=== PATIENT | male | born 1980 | race Caucasian/White ===

== ENCOUNTER → 2020-09-22 09:18 | Outpatient (CLI) | payer BC, SELFPAY ==
[2020-09-23 16:04] LABS: COVID19 Sendout Not Detected (Not Detect)
== END ==
PROVIDERS: Visit Provider Physician Assistant
DX: Z11.59 Encounter for screening for other viral diseases (principal)
CPT/HCPCS: 87635

== ENCOUNTER 2020-09-25 06:07 | Inpatient (IN) | payer BC, SELFPAY ==
[2020-09-19 09:50] VITALS: BMI 35.9
[2020-09-25] VITALS (17 sets, daily range): BP systolic 104–143; BP diastolic 52–85; PULSE 63–117; RESP 12–24; TEMP 36.2–37.3; O2SAT 47–97; BMI 35.9
--- NOTE | 2020-09-25 | DI.RAD.S_ITS ---
PROCEDURE: XR LUMBAR SPINE 2-3V INDICATIONS: L4-5 TLIF TECHNIQUE: 2 views of the lumbar spine were acquired. COMPARISON: [facility] [place], MR, MR LUMBAR SPINE WITHOUT CONTRAST, 05/07/2020, 8:53. [facility] [place] Perkins, CR, XR LUMBAR SPINE WITH OLBIQUES PLUS FLEXION EXTENSION, 04/11/2020, 10:23. FINDINGS: 2 intraoperative fluoroscopy images demonstrate discectomy and posterior fusion at L4-L5. IMPRESSION: Discectomy and posterior fusion at L4-L5. Dictated by: Roscoe Erwin M.D. on 09/25/2020 at 11:31 Approved by: Roscoe Erwin M.D. on 09/25/2020 at 11:34
[2020-09-25] MEDS: LACTATED RINGERS 1,000 ML 42 ML IV (07:00)
--- NOTE | 2020-09-25 07:52 | PM.PREOP ---
Pre-operative Note COVID-19 COVID-19 status: Negative Result date/Date tested (Pos, Neg/Pending): 09/23/20 Interval Note History & Physical reviewed/Exam performed by Physician: Yes Changes to H&P: No
[2020-09-25] MEDS: CEFAZOLIN 2 GM/100 ML FROZ.PIGGY IV ×3 (07:59→23:29)
--- NOTE | 2020-09-25 08:32 | SUR.OPER ---
Prone on spine table, head in foam head support, padded chest and pelvic supports, gel pad at knees, lower legs supported by pillows; nipples, genitalia and toes free of pressure, arms secured on foam padded arm boards at <90 degrees abduction. Tape over blanket at thigh secured to table.
[2020-09-25] MEDS: BUPIVACAINE 0.25% W/ EPI 30 ML VIAL INJ (08:36)
[2020-09-25] MEDS: BUPIVACAINE LIPOSOME 266 MG/20 ML VIAL INJ (08:37)
--- NOTE | 2020-09-25 10:28 | PM.OP.1 ---
Operative Date/Time/Diagnoses Date of procedure: 09/25/20 Time of procedure: 08:28 Pre-op diagnosis: 1. L4-5 recurrent disc herniation 2. L4-5 history of hemilaminectomy with spinal stenosis Post-op diagnosis: same Procedure & Clinicians Procedure: 1. L4-5 Postero-lateral and posterior interbody fusion 2. L4-5 interbody cage placement. 3. L4-5 decompressive laminectomy with bilateral facetecomies 4. L4-5 Posterior non-segmental instrumentation 5. [place] of bone marrow from iliac crest 6. Utilization of microsurgical technique and operating microscope Same procedure as scheduled: Yes Indications: Patient has been having chronic back pain and worsening lumbar radiculopathy. Patient had a prior microdiskectomy surgery. Patient's disc fragment was found to be partially calcified and was partially removed due to the significant calcification and adhesion. Patient failed multiple conservative management with worsening pain weakness and numbness in her lower extremity. Patient has been having difficulty performing activity of daily living. After discussing risks benefits of treatment options, patient elected proceed with surgery. Surgeon: Celso Tamayo [employer] Instructor: Jenelle Clark Click Yes if Unassisted: No Anesthesia Type: General Operative Notes Closure Type: primary Specimen(s): none sent Prosthetic devices, grafts, tissues, transplants, or devices: Globus revolve screws, Rise cage Estimated Blood Loss (mL): 50 Blood products transfused: none Procedure in detail: Patient was seen in the preoperative area. Risks and benefits of the surgery was discussed with the patient. Informed consent was obtained from the patient and placed in the chart. Surgical site was marked. Patient was taken to the operative room. General anesthesia was administered. Prophylactic antibiotic was given to the patient less than 30 min before the incision was made. Patient was placed into a prone position on the [place] table. Patient's back was then prepped and draped in the sterile fashion. Time-out was performed at this time. Using AP and lateral C-arm imaging the interval between L4-5 was identified and marked on patient's back. A 2 inch incision 2 in from midline was made on the right side first. The fascia was incised in line with skin incision. Globus MARS retractors was placed inside the incision and docked onto the L4 lamina. Using microsurgical technique and operating microscope, a L4 laminectomy and L4-5 facetectomy was performed using a Kerrison rongeur. The disc space at L4-5 was identified. And a total diskectomy was performed at L4-5 level. The calcified disc was identified again. There was significant adhesion that was pre-existing as well as from the prior surgery. Decompression was performed by removing the calcified disc as well as the remaining disc inside the interbody space. Total facetectomy was performed decompressing neural foramen along with laminectomy to decompress the central canal. The L4-5 level was rendered grossly unstable after the decompression was completed. Fusion was performed to address the instability created from the decompression. The endplates were decorticated using a rasp and shaver. The total diskectomy and decortication was performed at L4-5 level in order to to accomplish a L4-5 fusion. The local bone from the laminectomy and facetectomy was saved for local bone grafting. After the total diskectomy and decortication was completed, Trifecta bone graft material was combined with local bone that was harvested earlier. At this time, a separate skin is incision was made over the iliac crest. A Jamshidi needle was inserted into the iliac crest through a separate skin incision. 5 cc of bone marrow aspiration was obtained through the separate skin incision using a Jamshidi needle from the iliac crest. The bone marrow aspiration was combined with local bone and the Trifecta bone grafting material. The bone grafting material was placed into the L4-5 interbody space along with a expandable cage. The cage was expanded to its maximum height using the torque limiting screwdriver. At this time a mirror image incision was made on the left side. The fascia was incised in line with the skin incision. Globus MARS retractor was inserted and docked onto the L4-5 posterolateral gutter. Using the power drill, posterior-lateral decortication was performed at L4-5 level until bleeding cortical bone was identified. The remaining bone grafting material was placed into the L4-5 posterior lateral gutter he order to accomplish posterolateral fusion at the L4-5 level. Using the double C-arm technique, pedicle screws were placed into the L4-5 pedicles bilaterally. This was done by placing the Jamshidi needle into the pedicles, then placing the guidewires over the Jamshidi needle, and finally placing the cannulated screws over the guidewires bilaterally. After the pedicle screws were placed, 2 titanium rods was locked into the heads of the pedicle screws using locking caps and torque limiting screwdriver. After all the hardware was placed, and confirmed with AP and lateral C-arm imaging, the wound was then irrigated with sterile normal saline and packed with Ray-Mackenzie gauze for 3 min to accomplish hemostasis. After the gauze was removed the deep fascia was closed with #1 Vicryl suture. The subcutaneous layer was closed with 2-0 Vicryl. The skin was closed with skin faby. Patient tolerated the procedure well. There were no complications. Complications: none Post-operative Condition: stable Disposition: PACU Plan for aftercare: Admit to inpatient hospital
[2020-09-25] MEDS: fentaNYL 100 MCG/2 ML INJ IV (11:08)
[2020-09-25] MEDS: OXYCODONE IR 5 MG TABLET PO ×2 (11:14→11:45)
[2020-09-25] MEDS: ACETAMINOPHEN 325 MG TABLET 975 MG PO (11:15)
--- NOTE | 2020-09-25 11:20 | SUR.PHASEI ---
Pt received to PACU after general anesthesia at 1043. Oral airway in place. Chin lift performed. O2 sats on arrival = 47%. Placed on 100% NRB with improvement in O2 sats. Report received from LUCY Keller and Dr Colon. Oral airway out at 1053. O2 removed. Pt awake and alert, maintaining own airway. O2 sats 97% on room air.
[2020-09-25] MEDS: hydrOXYzine 50 MG/ML INJ 25 MG IM (11:43)
--- NOTE | 2020-09-25 12:09 | SUR.PHASEI ---
Transferred to 210. All belongings with pt. Received in room by LUCY Hardy. bedside handoff completed.
[2020-09-25] MEDS: SODIUM CHLORIDE 0.9% 1,000 ML 100 ML IV ×2 (12:30→22:52)
[2020-09-25] MEDS: HYDROMORPHONE 0.5 MG INJ IV ×4 (13:29→23:30)
--- NOTE | 2020-09-25 14:25 | PC.NURSE ---
Assess- Patient is comfortable in bed after getting 0.5mg of iv dilaudid. He is up and working with physical therapy. Patient has his own pj pants on. His Hong is at patients bedside. Dressing to lower back is cdi and patient denies numbness or tingling to lower extremities.
--- NOTE | 2020-09-25 14:52 | PT.IIE ---
Current Diagnoses Spinal stenosis, lumbar region without neurogenic claudication (09/25/20) Other intervertebral disc displacement, lumbar region (09/25/20) Other specified postprocedural states (09/25/20) Surgery Performed Operation Date: 09/25/20 07:45 Actual Procedures p L4-5 TLIF with instrumentation - Celso Tamayo MD Surgical History (Last Updated 09/19/20 @ 09:53 by Latia Caceres RN) Hx of eye surgery (Acute) Hx of microdiscectomy (Acute 06/25/20) Medical History (Last Updated 09/19/20 @ 10:06 by Latia Caceres RN) Anxiety (Acute) PTSD (post-traumatic stress disorder) (Acute) Recurrent herniation of lumbar disc (Acute) Sciatica (Acute) Spinal stenosis of lumbar region with radiculopathy (Acute) Physical Therapy Inpatient Evaluation/Re-Eval M1 PT/OT-IP Prior Functional Status Start: 09/25/20 13:40 Freq: NEEDED Status: Active Protocol: Document 09/25/20 14:26 (Rec: 09/25/20 14:52 [id number]) Medical Review Prior Functional Status Medical History Reviewed Yes Diet/Fluid Consistency Regular Communication no deficits noted. Able to make needs known Mobility and Gait independent for mobility without AD. Pt has difficulty bending over d/t back pain. Pt has been using log roll to L for bed mobility. He also places a walker on his L side of the bed to assist pushing off from sidelying position. Activities of Daily Living and IADL's independent for all ADLs and IADLs Prior Functional Level (Other details) Prior back pain located in the right buttock, posterior lateral thigh, and leg, to the first 3 toes and medial aspect of the foot. Social History Household Members spouse Living Arrangements House Number of Floors (Floors) One Floor Number of Stairs To Enter/Railing? 1 MARY with railing on L side pt has an adjustable bed Home Environment Standard Height Toilet,Walk in Shower,Tub/Shower Home Equipment Front Wheel Walker,Straight Cane,Grab Bars In Shower Additional Social History Comment Pt lives with his spouse in [place]. Spouse is a RN who works 2 days with 5 days off. He will primarily be the pt CG and pt's sister will also come in to assist if needed. M2 PT-IP Current Condition Start: 09/25/20 13:40 Freq: NEEDED Status: Active Protocol: Document 09/25/20 14:26 (Rec: 09/25/20 14:52 [id number]) Physical Therapy Current Condition Current Condition Evaluation Date 09/25/20 Treatment Diagnosis L4-5 TLIF, difficulty in walking Onset Date 09/25/20 Precautions Lumbar Precautions Log Roll,No Twisting,Limit Bending,Lifting Restriction of 10 lbs,Gait Belt above Incisional Area Weight Bearing Status Weight Bearing Status Full Weight Bearing M3 PT-IP Subjective Start: 09/25/20 13:40 Freq: NEEDED Status: Active Protocol: Document 09/25/20 14:26 (Rec: 09/25/20 14:52 [id number]) Subjective Physical Therapy Visit Type Type Initial Evaluation Visit Start Time 13:50 Visit Stop Time 14:20 Total Visit Minutes 30 Notes Spouse attended session. Number of RESIDENTIAL CONSTRUCTION INSTRUCTOR Visits 0 Physical Therapy Visit Comments Patient Comments I want to get out of the bed. Patient Goals to regain his mobility and strength. Therapy Pain Assessment Pain When Pain Assessed During Mobility Pain Present Pain Present Pain Reported Location back Intensity 5 Scale Used Numeric (0 - 10) Description Aching,With Movement Pain Management Techniques Timing of Activity with Medications M4 PT-IP Mobility and Gait Start: 09/25/20 13:40 Freq: NEEDED Status: Active Protocol: Document 09/25/20 14:26 (Rec: 09/25/20 14:52 [id number]) PT-Bed Mobility Assessment Rolling Type of Rolling Log Rolling,Roll to Left Level of Assist Contact Guard Assistance Supine to Sit Supine to Sit Contact Guard Assistance, Bedrails Scooting Scooting to Edge of Bed Contact Guard Assistance PT-Transfer Assessment Sit to and From Stand Sit to and from Stand Contact Guard Assistance,1 Person Assistance Equipment Transfer Assistive Device Gait Belt,Front Wheeled Walker Orthotic/Prosthetic Devices or Brace: No Transfers Transfer Destination Bed,Chair Transfer Technique Stand Step Pivot Transfer Ability Level of Assist Contact Guard Assistance,Use of Upper Extremities Comments Mobility Comments Pt was in bed upon PT arrival. Spouse at bedside. Pt began to be groggy but able to provide detailed PMH and social hx. BP in supine 132/77 . Pt initially completed log roll to L followed by pushing off through bedrail slowly d/t pain and softness of pt's bed . He sat up after and scooted towards EOB. Pt then requested to put on his underwear and pants and spouse assisted to mal. Pt then stood up with CGA and able to pull his pants up. He amb to toilet with FWW CGA and able to void in standing. Pt was somewhat wobbly possibly d/t the medication. He then turned around and amb back to bedside chair. He completed stand step pivot transferred and showed good descend with use of armrests. BP at 120/74. Pt denies discomfort but feeling groggy. Call light placed within reach. Gait Assessment Gait Gait Assistance Required: Contact Guard Assist Distance (Feet) 8 Able to Maintain Weight Bearing Status Yes During Gait Assistive Devices Assistive Device Gait Belt,Front Wheeled Walker Orthotic/Prosthetic Devices or Brace: No Gait Deviations General Gait Pattern Antalgic,Decreased Stride Length,Decreased Feet Clearance Factors Limiting Gait Function Factors Limiting Gait Function Decreased Activity Tolerance, Decreased Strength,Limited Range of Motion,Pain,Poor Balance,Poor Safety Awareness Comments Gait Comments see mobility comments. Stair Climbing Assessment Comments Stair Climbing Comments did not assess PT-Balance Assessment Sitting Balance and Reactions Static Sitting Balance Ability Normal Dynamic Sitting Balance Ability Normal Standing Balance and Reactions Static Standing Balance Ability Normal Dynamic Standing Balance Ability Good Device Used FWW M5 PT-IP Objective Assessments Start: 09/25/20 13:40 Freq: NEEDED Status: Active Protocol: Document 09/25/20 14:26 (Rec: 09/25/20 14:52 [id number]) Orientation Orientation/Cognition Level of Alertness Alert Orientation Name,Age,Birthday,Month,Date, Year,Day of Week,Place, Situation Language Function Ability No Deficits Noted Safety Awareness Understands Safety Issues Memory Description No Deficits Noted Gross Range of Motion Upper Extremity ROM Assessment Within Functional Limits Lower Extremity ROM Assessment Within Functional Limits Strength Upper Extremity Strength Assessment Within Functional Limits Lower Extremity Strength Assessment Right Impaired Ankle 4-/5 Comments Strength Comments ankle EV, IV and PF weakness noted 4-/5 L ankle 5/5 Coordination Assessment Gross Coordination Gross Coordination WNL Sensation Assessment Sensation Gross Sensation Right LE Impaired Light Touch Impaired Sensation Description Numbness,Tingling Comments Sensation Comments lateral aspect of R nelson, first 3 toe with numbness and tingling sensation noted. Muscle Tone Muscle Tone WNL No M6 PT-IP Treatment Start: 09/25/20 13:40 Freq: NEEDED Status: Active Protocol: Document 09/25/20 14:26 (Rec: 09/25/20 14:52 [id number]) Physical Therapy Treatment Education Education Provided Precautions,Post-Op Packet, Safety M7 PT-IP Assessment and Plan Start: 09/25/20 13:40 Freq: NEEDED Status: Active Protocol: Document 09/25/20 14:26 (Rec: 09/25/20 14:52 [id number]) PT Summary Assessment and Plan Potential Rehabilitation Potential Excellent Status of Condition at Evaluation Stable Summary Impairments Pain,ROM,Strength,Balance, Sensation,Bed Mobility, Transfers,Gait,Activity Tolerance Assessment Summary This is a low complexity evaluation for this 40yo male s/p POD0 L4-5 TLIF. Pt previously had a L4-5 microdisectomy 12 weeks ago. Pt's PLOF= independent with mobility without AD. CLOF= Pt is somewhat anxious and groggy possibly d/t medication but he is able to complete transfer and amb with FWW CGA. Expect pt to d/c home with spouse and sister assistance once he is medically stable. Goals Bed Mobility Goal Standby Assistance Transfer Goal Standby Assistance,Front Wheeled Walker Gait Goal Standby Assistance,Front Wheel Walker Gait Distance 200 Other Goals climb 1 step with L rail mobility with LRAD Days to Meet Goals 2 Frequency of Treatment Frequency Of Treatment Twice a Day Treatment Plan Physical Therapy Treatment Plan Bed Mobility Training,Transfer Training,Gait Training, Therapeutic Exercise,Balance Retraining,Post Op Education, Discharge Planning,Hot or Cold Pack,Neuromuscular Re-ed Other Recommendations and Next Treatment climb 1 step with L rail Focus mobility with LRAD Recommendations To Nursing Amount of Assist Needed 1 Person Assist Discharge Recommendations PT Discharge Recommendations Home with Assistance Transportation Needs at Discharge Private Vehicle
[2020-09-25] MEDS: OXYCODONE IR 5 MG TABLET 10 MG PO ×3 (15:35→21:30)
--- NOTE | 2020-09-25 18:24 | PC.NURSE ---
1814 - Asked by primary RN to speak with the patient regarding [facility] smoking policy. Patient reported to be requesting to go outside to smoke and requesting to be disconnected from IV. Upon speaking with the patient he described feeling restricted and experiencing anxiety. He also felt that his concerns had been dismissed. He states that he wanted to be disconnected from the IV in order to change his clothing. The primary RN assisted the patient in changing into his own, more comfortable clothing. He states that he was feeling very hot and that the gown was tight and twisting. I discussed with the patient the smoking policy, and provided a written copy. The patient then request to go out and get some air. Again referring to anxiety and feeling overheated. I educated him to the liability of allowing patients to ambulate outside unaccompanied post-operatively. I offered, and the patient was agreeable to, ambulate around the unit. Staff adjusted his thermostat. A fan is at bedside. The patient reports feeling a decrease in his anxiety and frustration following ambulation. I encouraged the patient to call when he was feeling ready to ambulate again. Primary RN updated with patient concerns.
[2020-09-25] MEDS: SENNOSIDES 8.6 MG TABLET 17.2 MG PO (21:30)
[2020-09-25] MEDS: DOCUSATE 100 MG CAPSULE PO (21:30)
[2020-09-26] MEDS: OXYCODONE IR 5 MG TABLET 10 MG PO ×3 (00:52→08:20)
[2020-09-26] MEDS: HYDROMORPHONE 0.5 MG INJ IV ×2 (01:39→06:00)
[2020-09-26 04:30] VITALS: BP 149/71; PULSE 92; RESP 18; TEMP 36.6; O2SAT 95
--- NOTE | 2020-09-26 04:43 | PC.NURSE ---
Pt's pain not well controlled through shift. Pt also did not sleep. H/O anxiety. Exhibited s/sx of anxiety through shift; spent much of our conversations discussing available pain intervention, anxiety and therapeutic measures for anxiety. The patient had many questions about what was allowed on hospital grounds as far as being able to go outside for a walk. I explained to him his risk for falls, availability of volunteers to bring him outside for fresh air and the fact that he is still attached to the IV pole. I reminded him that his stay here is temporary, and he will soon be home in the comfort of his own surroundings. The patient is ambulating very well and taking frequent walks through the unit halls. He is tolerating PO fluids and foods. No BM yet, but has had flatulence.
[2020-09-26] MEDS: hydrOXYzine pamoate 25 MG CAPSULE PO (05:08)
[2020-09-26 07:00] VITALS: BP 117/66; PULSE 78; RESP 15; TEMP 36.6; O2SAT 95
[2020-09-26] MEDS: DOCUSATE 100 MG CAPSULE PO (08:20)
--- NOTE | 2020-09-26 08:28 | PM.PN.1 ---
Subjective Subjective Date Patient Seen: 09/26/20 Time Patient Seen: 08:28 Interval history: Patient is POD#1 s/p L4-[address] Tamayo. Some issues with pain control overnight, taking Oxycodone 10mg with occasional use of IV Dilaudid. He has been OOB in the room and walking in the halls. He is voiding appropriately. He is tolerating a diet. Did have an episode of anxiety overnight which he feels is due to recently quitting smoking. States his anxiety is improved this morning. No complaints. Exam Vital Signs (past 8 hours): - 09/26/20 04:30 09/26/20 07:00 Temperature 97.9 F 97.8 F Pulse Rate 92 H 78 Respiratory Rate 18 15 Blood Pressure 149/71 H 117/66 Pulse Oximetry 95 95 Oxygen Delivery Method Room Air Oxygen Flow Rate 0 Narrative Exam Narrative: 40 year old male resting at edge of bed eating breakfast. Alert and oriented in no acute distress. Dressing in place is clean and dry, peeling a bit. 5/5 BLE. Calves are soft, nontender. Assessment & Plan Assessment & Plan narrative: Patient doing well postoperatively. He has been OOB frequently already, has sales support administrator available at home. Will need to do stair training (1 step into home) prior to dc. Discussed pain control and patient would like to discharge with Oxycodone, prescription provided today. Patient declined nicotine patch. Discharge to home later today after PT. Quality VTE Deep Vein Thrombosis/Pulmonary Embolism Present on Admission: No
--- NOTE | 2020-09-26 09:10 | OT.IP.EVAL ---
Current Diagnoses Spinal stenosis, lumbar region without neurogenic claudication (09/25/20) Other intervertebral disc displacement, lumbar region (09/25/20) Other specified postprocedural states (09/25/20) Surgery Performed Operation Date: 09/25/20 07:45 Actual Procedures p L4-5 TLIF with instrumentation - Celso Tamayo MD Past Medical History (Last Updated 09/19/20 @ 10:06 by Latia Caceres RN) Anxiety (Acute) PTSD (post-traumatic stress disorder) (Acute) Recurrent herniation of lumbar disc (Acute) Sciatica (Acute) Spinal stenosis of lumbar region with radiculopathy (Acute) Surgical History (Last Updated 09/19/20 @ 09:53 by Latia Caceres RN) Hx of eye surgery (Acute) Hx of microdiscectomy (Acute 06/25/20) Occupational Therapy Inpatient Evaluation/Re-Eval M1 PT/OT-IP Prior Functional Status Start: 09/26/20 09:10 Freq: NEEDED Status: Active Protocol: Document 09/26/20 08:55 [facility] (Rec: 09/26/20 09:30 [facility] [id number]) Medical Review Prior Functional Status Medical History Reviewed Yes Diet/Fluid Consistency Regular Communication no deficits noted. Able to make needs known Mobility and Gait independent for mobility without AD. Pt has difficulty bending over d/t back pain. Pt has been using log roll to L for bed mobility. He also places a cane on his L side of the bed to assist pushing off from sidelying position. Activities of Daily Living and IADL's independent for all ADLs and IADLs but needing increased time due to his pain Prior Functional Level (Other details) Prior back pain located in the right buttock, posterior lateral thigh, and leg, to the first 3 toes and medial aspect of the foot. Social History Household Members spouse Living Arrangements House Number of Floors (Floors) One Floor Number of Stairs To Enter/Railing? 1 MARY with railing on L side pt has an adjustable bed Home Environment Standard Height Toilet,Walk in Shower,Tub/Shower Home Equipment Front Wheel Walker,Straight Cane,Grab Bars In Shower Additional Social History Comment Pt lives with his spouse, Hong in [place]. Spouse is a RN who works 2 days with 5 days off. He will primarily be the pt CG and pt's sister will also come in to assist if needed. M2 OT-IP Current Condition Start: 09/26/20 09:10 Freq: Status: Active Protocol: Document 09/26/20 08:55 [facility] (Rec: 09/26/20 09:30 [facility] [id number]) Occupational Therapy Current Condition Current Condition Evaluation Date 09/26/20 Treatment Diagnosis S/p L4-5 TLIF Diagnosis Onset Date 09/25/20 Post Operative Precautions Lumbar Precautions Log Roll,No Twisting,Limit Bending,Lifting Restriction of 10 lbs,Gait Belt above Incisional Area M3 OT- IP Subjective and Pain Start: 09/26/20 09:10 Freq: Status: Active Protocol: Document 09/26/20 08:55 [facility] (Rec: 09/26/20 09:30 [facility] [id number]) OT- Subjective Occupational Therapy Visit Type Type Initial Evaluation Visit Start Time 08:55 Visit Stop Time 09:10 Total Visit Minutes 15 Occupational Therapy Visit Comments Patient Comments Pt agreed to get up for OT eval. Patient/Caregiver Goals TO go home. OT Pain Assessment Pain When Pain Assessed At Rest Pain Present Pain Present Denied Pain M4 OT- IP ADL's Start: 09/26/20 09:10 Freq: Status: Active Protocol: Document 09/26/20 08:55 [facility] (Rec: 09/26/20 09:30 [facility] [id number]) OT [id number] Comments OT Self-Feeding Comments NOt at meal time. OT ADL-Grooming Comments OT Grooming Comments Pt states already performed grooming needs. OT ADL-Oral Care Comments Oral Care Comments Educated to spit into a cup or just lean at his hips for oral care needs. OT ADL-Dressing General Eval Lower Body Dressing Ability Minimal Assistance Comments OT Dressing Comments Pt not wanting to have a sock aid or long handle shoe horn and states his will assist him as needed. OT ADL-Toileting Comments OT Toileting Comments Pt states was able to reach to wipe and agreed that able to stand to wipe for increased ease if needed. Pt states only gets up once a night to use the bathroom and states will make sure assists him as needed. OT ADL-Bathing Comments OT Bathing Comments Pt states to shower at home. M5 OT- IP IADL's Start: 09/26/20 09:10 Freq: Status: Active Protocol: Document 09/26/20 08:55 [facility] (Rec: 09/26/20 09:30 [facility] [id number]) OT-Instrumental Activities of Daily Living Home Safety Awareness Awareness of Need for Assistance at Home Good Awareness Ability to Problem Solve Emergency Able to Problem Solve Situations Medication Management Medication Management No Deficits Identified Money Management Money Management No Deficits Identified Meal Preparation Meal Preparation Caregiver Provides Assist Project Builder Project Builder Caregiver Provides Assist M6 OT- IP Functional Cognition Start: 09/26/20 09:10 Freq: Status: Active Protocol: Document 09/26/20 08:55 [facility] (Rec: 09/26/20 09:30 [facility] [id number]) Cognitive Factors Limiting Selfcare Function Cognitive Ability Level of Alertness Alert Patient Orientation Name,Age,Birthday,Month,Date, Year,Day of Week,Place, Situation Attention Span Ability Capable of Focused Attention, Capable of Sustained Attention Ability to Follow Commands Able to Follow Multi-Step Commands Memory Description No Deficits Noted Safety Awareness No Deficits Noted Problem Solving Ability Needs Assist to Identify Solutions Cognitive Comments Cognitive Assessment Comments Pt able to states all back precautions and needing initial reminder for how to do his log rolling. Pt states will sleep on his side and has a lot of body pillows and other pillows to help with his positioning. OT- Vision and Hearing OT- Hearing Assessment OT- Hearing Assessment WFL OT- Vision Assessment Visual Acuity Glasses All The Time M7 OT- IP Mobility and Balance Start: 09/26/20 09:10 Freq: Status: Active Protocol: Document 09/26/20 08:55 [facility] (Rec: 09/26/20 09:30 [facility] [id number]) OT- Bed Mobility Assessment Supine to Sit Supine to Sit Assist Standby Assistance Sit to Supine Sit to Supine Assist Standby Assistance,Bedrails Scooting Scooting to Edge of Bed Standby Assistance OT-Transfer Assessment Sit to and From Stand Sit to and from Stand Standby Assistance Transfers Transfer Ability Standby Assistance Technique Transfer Destination Bed Devices Transfer Assistive Devices None Comments Mobility Comments Distant SBA for all mobility needs in the room and did not have to use the FWW for the short distance in the room. OT- Balance Assessment Sitting Balance and Reactions Static Sitting Balance Ability Normal Dynamic Sitting Balance Ability Normal Standing Balance and Reactions Static Standing Balance Ability Good Dynamic Standing Balance Ability Fair M8 OT- IP Objective Assessments Start: 09/26/20 09:10 Freq: Status: Active Protocol: Document 09/26/20 08:55 [facility] (Rec: 09/26/20 09:30 [facility] [id number]) OT Gross Range of Motion Upper Extremity Range of Motion Assessment Within Functional Limits OT-Muscle Tone Assessment Muscle Tone WNL Yes M9 OT- IP Assessment and Plan Start: 09/26/20 09:10 Freq: Status: Active Protocol: Document 09/26/20 08:55 [facility] (Rec: 09/26/20 09:30 [facility] [id number]) OT Summary Assessment and Plan Potential Rehabilitation Potential Excellent Analytic Complexity at Evaluation Low Summary OT Impairments Bathing Progress Towards Goals Progressing Toward Goals Assessment Summary Pt low complexity and doing well and just will need minimal assist at home for socks and showering needs. Pt already has a timber watchman at home and did not want a long handle shoe horn or sock aid. Pt has a supportive at home to assist for all his needs. Goals Self-Feeding Goal Independent Grooming Goal Independent Dressing Goal Independent Toileting Goal Independent Bathing Goal Independent Toilet Transfer Goal Independent Shower Transfer Goal Independent Patient/Caregiver Education Goal Demonstrate Post-Op Precautions Frequency of Treatment Frequency Of Treatment Once a Day Treatment Plan OT Treatment Plan ADL Training,Functional Mobility,Patient/Family Education,Discharge Planning Discharge Recommendations OT Discharge Recommendations Home with Assistance Transportation Needs at Discharge Private Vehicle
--- NOTE | 2020-09-26 09:40 | PT.IPTN ---
Current Diagnoses Spinal stenosis, lumbar region without neurogenic claudication (09/25/20) Other intervertebral disc displacement, lumbar region (09/25/20) Other specified postprocedural states (09/25/20) Surgery Performed Operation Date: 09/25/20 07:45 Actual Procedures p L4-5 TLIF with instrumentation - Celso Tamayo MD Physical Therapy Treatment Note M2 PT-IP Current Condition Start: 09/25/20 13:40 Freq: NEEDED Status: Active Protocol: Document 09/25/20 14:26 (Rec: 09/25/20 14:52 [id number]) Physical Therapy Current Condition Current Condition Evaluation Date 09/25/20 Treatment Diagnosis L4-5 TLIF, difficulty in walking Onset Date 09/25/20 Precautions Lumbar Precautions Log Roll,No Twisting,Limit Bending,Lifting Restriction of 10 lbs,Gait Belt above Incisional Area Weight Bearing Status Weight Bearing Status Full Weight Bearing M3 PT-IP Subjective Start: 09/25/20 13:40 Freq: NEEDED Status: Active Protocol: Document 09/26/20 09:15 [facility] (Rec: 09/26/20 11:05 [facility] [id number]) Subjective Physical Therapy Visit Type Type Treatment Note Visit Start Time 09:15 Visit Stop Time 09:40 Total Visit Minutes 25 Number of DIGITAL EXPERIENCE MANAGER Visits 1 Physical Therapy Visit Comments Patient Comments Pt agreeable to work w/ therapy. M4 PT-IP Mobility and Gait Start: 09/25/20 13:40 Freq: NEEDED Status: Active Protocol: Document 09/26/20 09:15 [facility] (Rec: 09/26/20 11:05 [place] [id number]) PT-Bed Mobility Assessment Rolling Type of Rolling Log Rolling,Roll to Right Level of Assist Standby Assistance Sit to Supine Sit to Supine Standby Assistance Scooting Scooting to Edge of Bed Standby Assistance PT-Transfer Assessment Sit to and From Stand Sit to and from Stand Standby Assistance Equipment Transfer Assistive Device Gait Belt,Front Wheeled Walker Orthotic/Prosthetic Devices or Brace: No Transfers Transfer Destination Bed,Chair Transfer Technique pt ambulated w/ FWW Transfer Ability Level of Assist Standby Assistance,Use of Upper Extremities Comments Mobility Comments Pt sitting EOB upon arrival from therapy. SBA for sit<> stand w/o AD. Pt then ambulated ~10 ft SBA no AD to FWW to use for further ambulation. Pt then a,buated ~ 100 ft and ascended/descended 1 platform step w/ FWW SBA w/ cues for sequencing. Pt ascended facing forward and descended step facing backwards and stated he normally does it that way at home. Pt then ambulated additional ~100 ft back to room and performed logroll into bed SBA. Pt demonstrated good safety awareness, balance , and proper use of FWW. Pt states he will not have issue completing step into house and feels ready to go home w/ spouse assisting as needed. Gait Assessment Gait Gait Assistance Required: Standby Assistance,1 Person Assist Distance (Feet) 110 Able to Maintain Weight Bearing Status Yes During Gait Assistive Devices Assistive Device Gait Belt,Front Wheeled Walker Orthotic/Prosthetic Devices or Brace: No Gait Deviations General Gait Pattern Antalgic,Decreased Stride Length,Decreased Feet Clearance Factors Limiting Gait Function Factors Limiting Gait Function Decreased Activity Tolerance, Decreased Strength,Limited Range of Motion,Pain,Poor Balance,Poor Safety Awareness Comments Gait Comments Pt ambulated ~10 ft w/o AD, but used FWW for longer distances. Instructed pt to use FWW at home until stronger , to which he agrees. Pt demonstrated good safety awareness and use of FWW. Stair Climbing Assessment Evaluation Level of Assist On Stairs Standby Assistance,1 Person Assistance Devices Stair Climbing Assistive Devices Front Wheel Walker Technique/Endurance Stair Climbing Direction Ascend and Descend Stair Climbing Technique Step to Step Number of Steps Climbed 1 Stair Climbing Set # Repetitions (reps) 1 Comments Stair Climbing Comments Pt ascended/descended 1x platform step w/ FWW. Pt ascended facing forward and descended facing backward, stating that is how he normally does it at home. Pt needed min cues for leg sequencing. Pt states he feels safe to complete step into home upon d/c. PT-Balance Assessment Sitting Balance and Reactions Static Sitting Balance Ability Normal Dynamic Sitting Balance Ability Normal Standing Balance and Reactions Static Standing Balance Ability Normal Dynamic Standing Balance Ability Good Device Used FWW M5 PT-IP Objective Assessments Start: 09/25/20 13:40 Freq: NEEDED Status: Active Protocol: Document 09/25/20 14:26 [facility] (Rec: 09/25/20 14:52 [facility] [id number]) Orientation Orientation/Cognition Level of Alertness Alert Orientation Name,Age,Birthday,Month,Date, Year,Day of Week,Place, Situation Language Function Ability No Deficits Noted Safety Awareness Understands Safety Issues Memory Description No Deficits Noted Gross Range of Motion Upper Extremity ROM Assessment Within Functional Limits Lower Extremity ROM Assessment Within Functional Limits Strength Upper Extremity Strength Assessment Within Functional Limits Lower Extremity Strength Assessment Right Impaired Ankle 4-/5 Comments Strength Comments ankle EV, IV and PF weakness noted 4-/5 L ankle 5/5 Coordination Assessment Gross Coordination Gross Coordination WNL Sensation Assessment Sensation Gross Sensation Right LE Impaired Light Touch Impaired Sensation Description Numbness,Tingling Comments Sensation Comments lateral aspect of R nelson, first 3 toe with numbness and tingling sensation noted. Muscle Tone Muscle Tone WNL No M6 PT-IP Treatment Start: 09/25/20 13:40 Freq: NEEDED Status: Active Protocol: Document 09/26/20 09:15 [place] (Rec: 09/26/20 11:05 [place] [id number]) Physical Therapy Treatment Education Education Provided Precautions,Post-Op Packet, Safety M7 PT-IP Assessment and Plan Start: 09/25/20 13:40 Freq: NEEDED Status: Active Protocol: Document 09/26/20 09:15 [facility] (Rec: 09/26/20 11:05 [place] [id number]) PT Summary Assessment and Plan Potential Rehabilitation Potential Excellent Status of Condition at Evaluation Stable Summary Impairments Pain,ROM,Strength,Balance, Sensation,Bed Mobility, Transfers,Gait,Activity Tolerance Assessment Summary Pt SBA for all bed mobility, transfers, ambulation w/ FWW, and stairs. Pt ambulated ~100 ft w/ FWW and 10 ft w/o AD, but agrees to use FWW at home for safety. Pt able to ascend/ descend platform step SBA w/ min cues for sequencing. Pt would benefit from outpatient therapy when appropriate for spinal mobility and strengthening. Goals Bed Mobility Goal Standby Assistance Transfer Goal Standby Assistance,Front Wheeled Walker Gait Goal Standby Assistance,Front Wheel Walker Gait Distance 200 Other Goals climb 1 step with L rail mobility with LRAD Days to Meet Goals 2 Frequency of Treatment Frequency Of Treatment Twice a Day Treatment Plan Physical Therapy Treatment Plan Bed Mobility Training,Transfer Training,Gait Training, Therapeutic Exercise,Balance Retraining,Post Op Education, Discharge Planning,Hot or Cold Pack,Neuromuscular Re-ed Other Recommendations and Next Treatment climb 1 step with L rail Focus mobility with LRAD Recommendations To Nursing Amount of Assist Needed 1 Person Assist Discharge Recommendations PT Discharge Recommendations Home with Assistance Transportation Needs at Discharge Private Vehicle
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
--- NOTE | 2020-09-26 13:20 | PC.NURSE ---
Discharge: Feels ready to d/c home this am. D/c instructions reviewed by PA. Seen by PT and given their final instructions. Understands his lami precautions. Up in room indep. Po pain meds effective. Vds w/out diff. Tolerates diet w/out problems. Back dressing changed to coversite and he was given an extra dressing. Incision stapled, no drainage, minimal redness. Reviewed d/c packet. Rx given. Questions answered. Pt d/c home via auto with sister.
== END 2020-09-26 11:05 | disposition home or self-care (01) | DRG 455 ==
PROVIDERS: Admitting Provider Orthopaedic Surgery Orthopaedic Surgery of the Spine; Referring Provider Orthopaedic Surgery Orthopaedic Surgery of the Spine; Visit Provider Orthopaedic Surgery Orthopaedic Surgery of the Spine
PROC: 0SG00AJ Fusion of Lumbar Vertebral Joint with Interbody Fusion Device, Posterior Approach, Anterior Column, Open Approach (ICD-10-PCS; principal; 2020-09-25 07:45)
DX: M51.26 Other intervertebral disc displacement, lumbar region (principal); M54.16 Radiculopathy, lumbar region; G47.33 Obstructive sleep apnea (adult) (pediatric); M48.061 Spinal stenosis, lumbar region without neurogenic claudication; G89.18 Other acute postprocedural pain; Z87.891 Personal history of nicotine dependence
CPT/HCPCS: 72100; 76000; 97116; 97161; 97165; 97530; C1776; C9290; J0330; J0690; J1100; J1170; J2250; J2405; J2704; J3010; J3410